=== PATIENT | female | born 1965 | race Caucasian/White ===

== ENCOUNTER 2018-08-25 17:39 | Emergency (ER) | payer OTHER ==
[~2018-08-25] VITALS: Ht 154.9 cm; Wt 83.1 kg
[2018-08-25 17:43] VITALS: Ht 154.9 cm; Wt 83.1 kg
[2018-08-25] MEDS ORDERED: KETOROLAC 30 MG INJ IM STA (20:42)
[2018-08-25] MEDS ORDERED: TYL500 PO (21:34)
[2018-08-25 21:44] VITALS: BP 130/78; PULSE 77; RESP 18
--- NOTE | 2018-08-26 03:24 | ERD ---
ER Documentation Chief Complaint Chief Complaint vag bleed x 13 days. last period was in january 2018 ROS All systems reviewed and are negative except as per history of present illness. Medications Home Meds Active Scripts Acetaminophen* (Tylenol*) 500 Mg Tab, 500 MG PO Q4H PRN for MILD PAIN LEVEL 1-3, #30 TAB Prov:AYESHA ALVAREZ DO 08/25/18 Reported Medications [None] No Conflict Check 10/29/11 Allergies Allergies: Coded Allergies: No Known Drug Allergies (Verified Allergy, Unknown, 10/29/11) PMhx/Soc History of Surgery: Yes (gallbladder removed 6yrs ago) Anesthesia Reaction: No Hx Neurological Disorder: No Hx Respiratory Disorders: No Hx Cardiac Disorders: No Hx Psychiatric Problems: No Hx Miscellaneous Medical Probl: Yes (Anemic) Hx Alcohol Use: No Hx Substance Use: No Hx Tobacco Use: No Smoking Status: Never smoker Physical Exam Vitals Vital Signs Date Temp Pulse Resp B/P (MAP) Pulse Ox O2 O2 Flow FiO2 Time Delivery Rate 08/25/18 98.7 77 18 130/78 97 Room Air 21:44 (95) 08/25/18 98.7 96 18 173/94 99 17:43 (120) Physical Exam Const: No acute distress Head: Atraumatic Eyes: Normal Conjunctiva ENT: Normal External Ears, Nose and Mouth. Neck: Full range of motion. No meningismus. Resp: Clear to auscultation bilaterally Cardio: Regular rate and rhythm, no murmurs Abd: Soft, non tender, non distended. Normal bowel sounds Skin: No petechiae or rashes Back: No midline or flank tenderness Ext: No cyanosis, or edema Neur: Awake and alert Psych: Normal Mood and Affect Result Diagram: 08/25/182003 Results 24 hrs Laboratory Tests Test 08/25/18 19:55 08/25/18 19:59 08/25/18 20:04 Urine Color RED Urine Clarity TURBID Urine pH 8.0 Urine Specific [place] 1.016 Urine Ketones NEGATIVE mg/dL Urine Nitrite NEGATIVE mg/dL Urine Bilirubin NEGATIVE mg/dL Urine Urobilinogen NEGATIVE mg/dL Urine Leukocyte Esterase NEGATIVE Norman/ul Urine Microscopic RBC > 182 /HPF Urine Microscopic WBC > 182 /HPF Urine Bacteria FEW /HPF Urine Hemoglobin 3+ mg/dL Urine Glucose NEGATIVE mg/dL Urine Total Protein 3+ mg/dl POC Beta HCG, Qualitative NEGATIVE White Blood Count 9.6 10^3/ul Red Blood Count 3.92 10^6/ul Hemoglobin 12.0 g/dl Hematocrit 34.0 % Mean Corpuscular Volume 86.7 fl Mean Corpuscular Hemoglobin 30.6 pg Mean Corpuscular 35.3 g/dl Hemoglobin Concent Red Cell Distribution Width 14.6 % Platelet Count 271 10^3/UL Mean Platelet Volume 10.0 fl Immature Granulocytes % 0.300 % Neutrophils % 59.1 % Lymphocytes % 30.6 % Monocytes % 8.0 % Eosinophils % 1.6 % Basophils % 0.4 % Nucleated Red Blood Cells % 0.0 /100WBC Immature Granulocytes # 0.030 10^3/ul Neutrophils # 5.7 10^3/ul Lymphocytes # 3.0 10^3/ul Monocytes # 0.8 10^3/ul Eosinophils # 0.2 10^3/ul Basophils # 0.0 10^3/ul Nucleated Red Blood Cells # 0.0 10^3/ul Current Medications Medications Dose Sig/Mike Start Time Status Last (Trade) Ordered Route PRN Stop Time Admin Dose Reason Admin Ketorolac 30 mg ONCE STAT 08/25/18 DC 08/25/18 Tromethamine IM 20:42 08/25/18 20:49 (Toradol) 20:44 Departure Diagnosis: Primary Impression: Vaginal bleeding Condition: Fair Patient Instructions: Menorrhagia Referrals: [facility] (PCP) [employer] [place] [id number] [phone] OFFICE FAX GIOVANNI HOLM [address] [place], [place] [phone] [place] [address] [place], [place] [phone] [place]ERNANDEZ [address] [facility], [address] [address] [address] [address] [place], [place] [phone] [facility] [address] [place] [address] [facility] [id number] [address] TAYLOR, SHAYE [address] [facility] [address] [address] [place], [place] [address] [facility]. [address], [facility] [address] [address] TEIXEIRA, [place] [address] [place] [address] Additional Instructions: Llame al doctor MAANA y priyanka haile WONG PARA DENTRO DE 1-2 [place].Dgale a la secretaria que nosotros le instruimos hacer esta wong.Avise o llame si mojica condicin se empeora antes de la wong. Regresa aqui si peor o no mejor. AYESHA ALVAREZ DO Aug 26, 2018 03:24
== END 2018-08-25 21:44 | disposition home or self-care (01) ==
LOC: FTE 17:39
DX: N93.9 Abnormal uterine and vaginal bleeding, unspecified (principal)
CPT/HCPCS: 36415; 76856; 81001; 81025; 85025; 96372; J1885; Z7502